=== PATIENT | female | born 1935 | race Caucasian/White ===

== ENCOUNTER 2018-05-21 02:40 | Emergency (ER) | payer OTHER, MEDICAID ==
[~2018-05-21] VITALS: Ht 149.9 cm; Wt 49.2 kg
[~2018-05-21 02:40] MED LIST: ANT12.5 PO; APAP/HYDROCODON1 T13 PO; ASPIR 8181 MG PO; BENTYL10 MG PO; CARVEDILOL6.25 M1 PO; EVISTA60 MG PO; FELODIPINE10 MG PO; FERROUS SULFAT325 M2 PO; NEXIUM40 MG PO; SIMVASTATIN40 M1 PO; SYNTHROID0.088 MG PO
[2018-05-21 02:51] VITALS: Ht 149.9 cm; Wt 49.2 kg
[2018-05-21 03:57] LABS: CALCIUM 9.1 mg/dL (8.5-10.1); CARBON DIOXIDE 26.9 mmol/L (21-32); CHLORIDE SERUM 102 mmol/L (98-107); CREATININE SERUM 1.5 mg/dL (0.6-1.0); GLUCOSE SERUM 112 mg/dL (74-106); SODIUM SERUM 137 mmol/L (136-145)
[2018-05-21 04:05] LABS: ALKALINE PHOSPHATASE 64 U/L (46-116); ALT/SGPT 9 U/L (14-59); AST/SGOT 11 U/L (15-37); BILIRUBIN TOTAL 0.31 mg/dL (0.20-1.00); LIPASE 92 IU/L (73-393)
[2018-05-21 04:07] LABS: ALBUMIN 3.1 g/dL (3.4-5.0); TOTAL PROTEIN, SERUM 5.9 g/dL (6.4-8.2)
[2018-05-21 05:09] LABS: microscopic required? NO
[2018-05-21 05:26] LABS: UA SPECIFIC GRAVITY <=1.005 (1.005-1.035); urine erythrocyte NEGATIVE (NEGATIVE)
[2018-05-21 05:54] VITALS: BP 126/70
== END 2018-05-21 06:21 | disposition home or self-care (01) ==
LOC: ED 02:40
PROVIDERS: Emergency Medicine
DX: R10.10 Upper abdominal pain, unspecified (principal); I10 Essential (primary) hypertension; E78.00 Pure hypercholesterolemia, unspecified
CPT/HCPCS: 36415; J0500; J1885